=== PATIENT | male | born 2000 | race Caucasian/White ===

== ENCOUNTER 2023-07-07 10:15 | Emergency (ER) | payer OTHER ==
[~2023-07-07] VITALS: Ht 188 cm; Wt 122.5 kg
[2023-07-07 10:23] VITALS: BP 132/88; TEMP 98.2
[2023-07-07] MEDS ORDERED: CLINDAMYCIN HCL 150 MG CAPSULE ONE (10:40)
[2023-07-07] MEDS: CLINDAMYCIN HCL 150 MG CAPSULE PO ONE (10:44)
[2023-07-07] MEDS ORDERED: CLIN300C12 PO (10:51)
[2023-07-07 10:55] VITALS: O2SAT 97
== END 2023-07-07 10:55 | disposition home or self-care (01) ==
LOC: ER 10:21
DX: L05.91 Pilonidal cyst without abscess (principal)